=== PATIENT | male | born 1960 | race Caucasian/White ===

== ENCOUNTER 2016-12-08 00:21 | Emergency (ER) | payer OTHER ==
[~2016-12-08 00:21] MED LIST: B-12 INJ1000 MCG/M IM; CALCIUM + VITA1 EACH PO; CLONAZEPAM1 MG PO; CLONAZEPAM2 MG PO; MOTRIN-DPS800 MG PO; MYLICON DPS80 MG PO; NICOTINE LOZENGE4 MG PO; NORVASC DPS10 MG PO; PRILOSEC DPS20 MG PO; PROZAC DPS10 MG PO; REMERON DPS30 MG PO; SILDENAFIL20 MG PO; SYNTHROID DP0.075 MG PO; ZOCOR DPS40 MG PO; ZYPREXA20 MG PO
--- NOTE | 2016-12-08 19:43 | ER ---
ADMIT: 12/08/2016 RM/LOC: ER [facility] MR#: [id number] [facility] [id number] CAROLA OLVERA [address] [facility] [address] [place] [address] Emergency Room Report SEX: M AGE: 56 : 1960 DATE: 12/08/2016 The patient is a 56-year-old male with chronic anxiety. Saw [place] physician yesterday with negative UA. States he is having inability to void. Denies any fevers, chills, or dysuria. Exam remarkable for nontoxic, afebrile, anxious-appearing male with normal genitalia and scrotal contents. Bladder scan 58 mL. Reassured the patient nothing is wrong. [facility]. Torito Thurston MD/ jay JOB #: [id number] CC: Torito Thurston MD, Attending Physician [facility] Physician, Family Physician . [facility]
== END 2016-12-08 01:00 | disposition home or self-care (01) ==
LOC: ER 00:21
PROC: 4A0D7BZ Measurement of Urinary Pressure, Via Natural or Artificial Opening (ICD-10-PCS; principal; 2016-12-08)
DX: F41.9 Anxiety disorder, unspecified (principal); R33.9 Retention of urine, unspecified; Z88.7 Allergy status to serum and vaccine; Z88.2 Allergy status to sulfonamides; Z79.899 Other long term (current) drug therapy